=== PATIENT | female | born 1990 ===

== ENCOUNTER 2020-10-29 03:47 | Inpatient (IN) | payer MEDICAID ==
[~2020-10-29] VITALS: Ht 172.7 cm; Wt 99.6 kg
[2020-10-29] MEDS ORDERED: BISACODYL 10 MG SUPP PR PRN (04:30)
[2020-10-29] MEDS ORDERED: POLYETHYLENE GLYCOL 17 GM PACKET PO PRN (04:30)
[2020-10-29] MEDS ORDERED: ACETAMINOPHEN 325 MG TABLET PO PRN (04:30)
[2020-10-29] MEDS ORDERED: DOCUSATE 100 MG CAPSULE PO PRN (04:30)
[2020-10-29] MEDS ORDERED: PLEASE ENTER ALLERGIES MC SCH ×2 (05:00→10:00)
[2020-10-29 05:16] VITALS: BP 105/74
[2020-10-29 07:56] VITALS: BP 119/85
[2020-10-29 12:57] LABS: MICROSCOPIC AUTO
[2020-10-29 19:25] VITALS: BP 98/63
[2020-10-29] MEDS ORDERED: RIVAROXABAN 20 MG TABLET ONE (20:23)
[2020-10-29] MEDS ORDERED: OMEPRAZOLE 20 MG CAPSULE.DR ONE (20:24)
[2020-10-29] MEDS: OXCARBAZEPINE 150 MG TABLET PO SCH (20:25)
[2020-10-29] MEDS: OLANZAPINE 10 MG TABLET PO SCH (20:26)
[2020-10-29] MEDS: BENZTROPINE 1 MG TABLET PO SCH (20:26)
[2020-10-29] MEDS: CHOLESTYRAMINE LIGHT 4GM PACKET PO SCH (20:37)
[2020-10-29] MEDS ORDERED: OMEPRAZOLE 10 MG CAPSULE.DR PO SCH (21:00)
[2020-10-29] MEDS ORDERED: RIVAROXABAN 2.5 MG TABLET PO SCH (21:00)
[2020-10-30] MEDS ORDERED: LEVOTHYROXINE 88 MCG TABLET ONE (05:52)
[2020-10-30] MEDS ORDERED: LEVOTHYROXINE 88 MCG TABLET PO SCH (06:00)
[2020-10-30] MEDS: OMEPRAZOLE 20 MG CAPSULE.DR PO SCH (06:54)
[2020-10-30 07:23] VITALS: BP 95/64
[2020-10-30 08:25] LABS: BASOPHILS % (AUTO) 0 % (0-1); EOSINOPHILS % (AUTO) 0 % (1-7); LYMPHOCYTES % (AUTO) 32 % (22-44); MEAN CORPUSCULAR HEMOGLOBIN 29.3 pg (27.0-34.8); MEAN CORPUSCULAR HGB CONC 33.6 g/dL (32.4-35.8); MEAN PLATELET VOLUME 7.2 fL (7.4-10.4); MONOCYTES % (AUTO) 6 % (2-9); NEUTROPHILS % (AUTO) 61 % (42-75); PLATELET COUNT 283 x10^3/uL (130-400); RED BLOOD COUNT 5.12 x10^6/uL (3.82-5.3); RED CELL DISTRIBUTION WIDTH 14.1 % (9.6-15.2)
[2020-10-30] MEDS ORDERED: RIVAROXABAN 20 MG TABLET ONE (08:27)
[2020-10-30 08:33] LABS: ANION GAP 5 mmol/L (5-15); CALCIUM 9.4 mg/dL (8.5-10.1); CHLORIDE 105 mmol/L (98-107); CHOLESTEROL, TOTAL 159 mg/dL (140-239); CREATININE 0.78 mg/dL (0.55-1.02)
[2020-10-30] MEDS: CHOLESTYRAMINE LIGHT 4GM PACKET PO SCH ×2 (08:33→20:09)
[2020-10-30] MEDS: OXCARBAZEPINE 150 MG TABLET PO SCH (08:34)
[2020-10-30] MEDS: BENZTROPINE 1 MG TABLET PO SCH ×2 (08:34→21:01)
[2020-10-30 09:01] LABS: CHOL/HDL RATIO 3.2; FREE T4 (FREE THYROXINE) 0.97 ng/dL (0.76-1.46); HDL CHOL % 31 % (28-40); HDL CHOLESTEROL (DIRECT) 50 mg/dL (40-60); LDL CHOLESTEROL,CALCULATED 78 mg/dL (54-169); LDL/HDL RATIO 1.6 (0.5-3.0); TRIGLYCERIDES 154 mg/dL (50-200); VLDL CHOLESTEROL 31 mg/dL (0-25)
[2020-10-30] MEDS ORDERED: OLAN10TA69 PO (12:25)
[2020-10-30] MEDS ORDERED: OXCA600T10 PO (12:25)
[2020-10-30] MEDS ORDERED: OMEP40CA8 PO (12:25)
[2020-10-30] MEDS ORDERED: LORA-446 PO (12:25)
[2020-10-30] MEDS ORDERED: LEVO112T4 PO (12:25)
[2020-10-30] MEDS ORDERED: HYDR50TA99 PO (12:25)
[2020-10-30] MEDS ORDERED: RIVA20TA PO (12:25)
[2020-10-30] MEDS ORDERED: BENZ1TAB61 PO (12:25)
[2020-10-30] MEDS ORDERED: METF500T17 PO (12:25)
[2020-10-30] MEDS ORDERED: PLEASE ENTER ALLERGIES MC SCH (15:30)
[2020-10-30] MEDS: metFORMIN 500 MG TABLET PO SCH (17:14)
[2020-10-30] MEDS: RIVAROXABAN 20 MG TABLET PO SCH (17:14)
[2020-10-30 19:18] VITALS: BP 93/63
[2020-10-30] MEDS: CARBAMAZEPINE XR 200 MG TABLET PO SCH (21:01)
[2020-10-30] MEDS: OLANZAPINE 10 MG TABLET PO SCH (21:01)
[2020-10-31] MEDS: LEVOTHYROXINE 112 MCG TABLET PO SCH (06:00)
[2020-10-31] MEDS: OMEPRAZOLE 20 MG CAPSULE.DR PO SCH (06:11)
[2020-10-31 07:28] VITALS: BP 110/74
[2020-10-31] MEDS: BENZTROPINE 1 MG TABLET PO SCH ×2 (08:18→21:06)
[2020-10-31] MEDS: CARBAMAZEPINE XR 200 MG TABLET PO SCH ×2 (08:19→21:06)
[2020-10-31] MEDS: CHOLESTYRAMINE LIGHT 4GM PACKET PO SCH ×2 (08:19→20:00)
[2020-10-31] MEDS: metFORMIN 500 MG TABLET PO SCH ×2 (08:19→16:42)
[2020-10-31] MEDS: SULFAMETH./TRIMETHOPRIM DS 800MG/160MG TABLET PO SCH ×2 (11:29→21:06)
[2020-10-31] MEDS: RIVAROXABAN 20 MG TABLET PO SCH (16:42)
[2020-10-31 19:25] VITALS: BP 115/80
[2020-10-31] MEDS: AQUAPHOR NATURAL HEALING OINT 50GM TP PRN (20:00)
[2020-10-31] MEDS: OLANZAPINE 10 MG TABLET PO SCH (21:06)
[2020-11-01] MEDS: OMEPRAZOLE 20 MG CAPSULE.DR PO SCH (06:01)
[2020-11-01] MEDS: LEVOTHYROXINE 112 MCG TABLET PO SCH (06:02)
[2020-11-01 07:24] VITALS: BP 102/67
[2020-11-01] MEDS: CHOLESTYRAMINE LIGHT 4GM PACKET PO SCH ×2 (08:22→19:58)
[2020-11-01] MEDS: ONDANSETRON ODT 4 MG PO PRN (08:41)
[2020-11-01] MEDS: BENZTROPINE 1 MG TABLET PO SCH ×2 (09:11→21:13)
[2020-11-01] MEDS: CARBAMAZEPINE XR 200 MG TABLET PO SCH ×2 (09:11→21:13)
[2020-11-01] MEDS: metFORMIN 500 MG TABLET PO SCH ×2 (09:11→17:01)
[2020-11-01] MEDS: SULFAMETH./TRIMETHOPRIM DS 800MG/160MG TABLET PO SCH ×2 (09:11→21:13)
[2020-11-01] MEDS: HALOPERIDOL 1 MG TABLET PO PRN (12:30)
[2020-11-01] MEDS: RIVAROXABAN 20 MG TABLET PO SCH (17:01)
[2020-11-01] MEDS: AQUAPHOR NATURAL HEALING OINT 50GM TP PRN (17:18)
[2020-11-01 19:29] VITALS: BP 107/72
[2020-11-01] MEDS: OLANZAPINE 10 MG TABLET PO SCH (21:13)
[2020-11-02] MEDS: LEVOTHYROXINE 112 MCG TABLET PO SCH (06:16)
[2020-11-02] MEDS: OMEPRAZOLE 20 MG CAPSULE.DR PO SCH (06:16)
[2020-11-02 07:42] VITALS: BP 104/71
[2020-11-02] MEDS: CHOLESTYRAMINE LIGHT 4GM PACKET PO SCH ×2 (08:56→20:04)
[2020-11-02] MEDS: CARBAMAZEPINE XR 200 MG TABLET PO SCH ×2 (09:49→20:58)
[2020-11-02] MEDS: BENZTROPINE 1 MG TABLET PO SCH ×2 (09:49→20:58)
[2020-11-02] MEDS: SULFAMETH./TRIMETHOPRIM DS 800MG/160MG TABLET PO SCH ×2 (09:49→20:58)
[2020-11-02] MEDS: metFORMIN 500 MG TABLET PO SCH ×2 (09:50→16:53)
[2020-11-02] MEDS: AQUAPHOR NATURAL HEALING OINT 50GM TP PRN (09:50)
[2020-11-02] MEDS: HALOPERIDOL 1 MG TABLET PO PRN (16:22)
[2020-11-02] MEDS: RIVAROXABAN 20 MG TABLET PO SCH (16:53)
[2020-11-02 19:15] VITALS: BP 93/65
[2020-11-02] MEDS: OLANZAPINE 10 MG TABLET PO SCH (20:59)
[2020-11-03 05:46] VITALS: BP 108/73
[2020-11-03] MEDS: LEVOTHYROXINE 112 MCG TABLET PO SCH (06:03)
[2020-11-03] MEDS: OMEPRAZOLE 20 MG CAPSULE.DR PO SCH (06:03)
[2020-11-03] MEDS: CHOLESTYRAMINE LIGHT 4GM PACKET PO SCH ×2 (08:37→21:43)
[2020-11-03] MEDS: CARBAMAZEPINE XR 200 MG TABLET PO SCH ×2 (09:24→20:32)
[2020-11-03] MEDS: metFORMIN 500 MG TABLET PO SCH ×2 (09:24→17:02)
[2020-11-03] MEDS: AQUAPHOR NATURAL HEALING OINT 50GM TP PRN (09:25)
[2020-11-03] MEDS: BENZTROPINE 1 MG TABLET PO SCH ×2 (09:25→20:32)
[2020-11-03] MEDS: RIVAROXABAN 20 MG TABLET PO SCH (17:02)
[2020-11-03] MEDS: ONDANSETRON ODT 4 MG PO PRN (17:24)
[2020-11-03 19:37] VITALS: BP 115/78
[2020-11-03] MEDS: OLANZAPINE 10 MG TABLET PO SCH (20:32)
[2020-11-04] MEDS: LEVOTHYROXINE 112 MCG TABLET PO SCH (05:58)
[2020-11-04] MEDS: OMEPRAZOLE 20 MG CAPSULE.DR PO SCH (05:58)
[2020-11-04 07:40] VITALS: BP 114/76
[2020-11-04] MEDS: BENZTROPINE 1 MG TABLET PO SCH ×2 (08:24→20:23)
[2020-11-04] MEDS: metFORMIN 500 MG TABLET PO SCH ×2 (08:24→17:04)
[2020-11-04] MEDS: CARBAMAZEPINE XR 200 MG TABLET PO SCH ×2 (08:24→20:23)
[2020-11-04] MEDS: CHOLESTYRAMINE LIGHT 4GM PACKET PO SCH ×2 (09:59→21:30)
[2020-11-04] MEDS: RIVAROXABAN 20 MG TABLET PO SCH (17:04)
[2020-11-04] MEDS ORDERED: OMEP-110 PO (18:55)
[2020-11-04] MEDS ORDERED: CARB200T2 PO (18:55)
[2020-11-04] MEDS ORDERED: OLAN10TA69 PO (18:55)
[2020-11-04] MEDS ORDERED: RIVA20TA PO (18:55)
[2020-11-04] MEDS ORDERED: ONDA4TAB13 PO (18:55)
[2020-11-04] MEDS ORDERED: BENZ1TAB61 PO (18:55)
[2020-11-04] MEDS ORDERED: HALO1TAB PO (18:55)
[2020-11-04 19:57] VITALS: BP 121/83
[2020-11-04] MEDS: OLANZAPINE 10 MG TABLET PO SCH (20:23)
[2020-11-05] MEDS: OMEPRAZOLE 20 MG CAPSULE.DR PO SCH (05:57)
[2020-11-05] MEDS: LEVOTHYROXINE 112 MCG TABLET PO SCH (05:58)
[2020-11-05 07:35] VITALS: BP 126/86
[2020-11-05] MEDS: CARBAMAZEPINE XR 200 MG TABLET PO SCH (08:41)
[2020-11-05] MEDS: metFORMIN 500 MG TABLET PO SCH (08:41)
[2020-11-05] MEDS: BENZTROPINE 1 MG TABLET PO SCH (08:41)
[2020-11-05] MEDS: CHOLESTYRAMINE LIGHT 4GM PACKET PO SCH (09:49)
== END 2020-11-05 10:30 | disposition home or self-care (01) | DRG 885 ==
LOC: 3E 04:46
PROVIDERS: ADMIT Psychiatry & Neurology Psychosomatic Medicine; ATTEND Psychiatry & Neurology Psychosomatic Medicine
DX: F20.0 Paranoid schizophrenia (principal); F33.2 Major depressive disorder, recurrent severe without psychotic features; R45.851 Suicidal ideations; N39.0 Urinary tract infection, site not specified; D68.59 Other primary thrombophilia; R45.850 Homicidal ideations; K91.5 Postcholecystectomy syndrome; K21.9 Gastro-esophageal reflux disease without esophagitis; Z87.440 Personal history of urinary (tract) infections; F43.20 Adjustment disorder, unspecified; E03.9 Hypothyroidism, unspecified; E11.9 Type 2 diabetes mellitus without complications; E66.9 Obesity, unspecified; Z56.0 Unemployment, unspecified; Z79.01 Long term (current) use of anticoagulants; Z79.84 Long term (current) use of oral hypoglycemic drugs; Z79.899 Other long term (current) drug therapy; Z88.8 Allergy status to other drugs, medicaments and biological substances; Z88.5 Allergy status to narcotic agent; Z68.33 Body mass index [BMI] 33.0-33.9, adult
CPT/HCPCS: 36415; 71045; 80048; 80061; 81001; 82607; 84439; 84443; 85025; 87086; 93005; Q0162